=== PATIENT | male | born 1995 | race African-American/Black ===

== ENCOUNTER 2018-03-23 18:16 | Emergency (ER) | payer OTHER, SELFPAY ==
--- NOTE | 2018-03-23 19:31 | RAD REPORT ---
EXAM DESCRIPTION: RAD - Lumbar Spine 3 Views - 03/23/2018 7:09 pm CLINICAL HISTORY: Fall, back pain COMPARISON: None. FINDINGS: A three-view lumbar spine examination was performed. Lumbar bodies are normal in height an d alignment. No fracture or acute bony process seen. Patient has relatively pronounced concavity marisol g the inferior endplates from L2 through L5 with the concavity becoming progressively more pronounced from superior to inferior. Minimal concavity of the superior endplates L3-L5. This is believed to be normal variant for this patient and not an acute process. No transverse process fractures seen. No p ars defect identified. Disc spaces are maintained. IMPRESSION: Negative Lumbar Spine examination for acute finding. Full findings detailed in the body of the report.
--- NOTE | 2018-03-23 19:44 | ER ---
Nurse's Notes [facility] Name: Isaiah Dowling Age: 22 yrs Sex: Male : 1995 Arrival Date: 03/23/2018 Time: 18:20 Bed 12 Private MD: Diagnosis: Contusion of lower back and pelvis Presentation: 03/23 18:33 Presenting complaint: Patient states: " I fell on Thursday when I was playing basketball ph and now my lower back is hurting." Reports L lower back pain that radiates to R shoulder, denies LOC or other injury. Transition of care: patient was not received from another setting of care. Onset of symptoms was March 23, 2018. Risk Assessment: Do you want to hurt yourself or someone else? Patient reports no desire to harm self or others. Initial Sepsis Screen: Does the patient meet any 2 criteria? No. Patient's initial sepsis screen is negative. Does the patient have a suspected source of infection? No. Patient's initial sepsis screen is negative. Care prior to arrival: None. 18:33 Method Of Arrival: Ambulatory ph 18:33 Acuity: CAROL 4 ph Historical: - Allergies: 18:35 No Known Allergies; ph - Home Meds: 18:35 None [Active]; ph - PMHx: 18:35 None; ph - PSHx: 18:35 None; ph - Immunization history:: Adult Immunizations up to date. - Social history:: Smoking status: Patient/guardian denies using tobacco. - Ebola Screening: : Patient negative for fever greater than or equal to 101.5 degrees Fahrenheit, and additional compatible Ebola Virus Disease symptoms Patient denies exposure to infectious person Patient denies travel to an Ebola-affected area in the 21 days before illness onset. Screenin:37 Abuse screen: Denies threats or abuse. Denies injuries from another. Nutritional rv screening: No deficits noted. Tuberculosis screening: No symptoms or risk factors identified. Fall Risk None identified. Assessment: 18:36 General: Appears in no apparent distress. comfortable, Behavior is calm, cooperative. rv Pain: Complains of pain in back. Neuro: Level of Consciousness is awake, alert, obeys commands, Oriented to person, place, time, situation. Cardiovascular: Capillary refill < 3 seconds. Respiratory: Airway is patent. GI: No signs and/or symptoms were reported involving the gastrointestinal system. : No signs and/or symptoms were reported regarding the genitourinary system. EENT: No signs and/or symptoms were reported regarding the EENT system. Derm: Skin is intact. Musculoskeletal: Reports pain in back. 20:00 Reassessment: Patient appears in no apparent distress at this time. mg2 Vital Signs: 18:34 BP 152 / 96; Pulse 62; Resp 16; Temp 98.5(TE); Pulse Ox 100% on R/A; Weight 68.04 kg; ph Height 5 ft. 11 in. (180.34 cm); Pain 10/10; 20:00 BP 140 / 72; Pulse 70; Resp 18; Pulse Ox 100% on R/A; Pain 0/10; mg2 18:34 Body Mass Index 20.92 (68.04 kg, 180.34 cm) ph ED Course: 18:20 Patient arrived in ED. mr 18:33 Mic Montesinos MD is Attending Physician. gs 18:34 Triage completed. ph 18:35 Arm band placed on Patient placed in an exam room. ph 18:37 Patient has correct armband on for positive identification. Bed in low position. Call rv light in reach. Pulse ox on. NIBP on. 18:37 No provider procedures requiring assistance completed. rv 18:59 Lumbar Spine (3 Views) XRAY In Process Unspecified. EDND 19:58 Vincenzo Shanks, RN is Primary Nurse. mg2 19:59 Patient did not have IV access during this emergency room visit. mg2 Administered Medications: No medications were administered Outcome: 19:43 Discharge ordered by . 20:00 Discharged to home ambulatory. mg2 20:00 Condition: good 20:00 Discharge instructions given to patient, Instructed on discharge instructions, follow up and referral plans. medication usage, Demonstrated understanding of instructions, follow-up care, medications, Prescriptions given X 1. 20:00 Patient left the ED. mg2 Signatures: Dispatcher [employer] KRISTINND Crystal Saunders mr Sophia Watkins RN RN Mic Montesinos MD MD Vincenzo Shanks RN RN [facility] [place] Ron Waters RN RN rv
--- NOTE | 2018-03-23 19:44 | EDPHYS ---
Physician Documentation [facility] Name: Isaiah Dowling Age: 22 yrs Sex: Male : 1995 Arrival Date: 03/23/2018 Time: 18:20 Bed 12 Private MD: ED Physician Mic Montesinos HPI: 03/23 19:41 This 22 yrs old Black Male presents to ER via Ambulatory with complaints of Back Pain. gs 19:41 The patient presents with pain that is acute. The symptoms are located in the low back. gs Onset: The symptoms/episode began/occurred 3 day(s) ago. The pain does not radiate. Associated signs and symptoms: Pertinent negatives: incontinence, urinary retention. The problem was sustained during a fall, playing basketball. Modifying factors: the patient symptoms are aggravated by any movement, bending. Severity of symptoms: At their worst the symptoms were moderate, in the emergency department the symptoms are unchanged. The patient has not experienced similar symptoms in the past. Historical: - Allergies: 18:35 No Known Allergies; ph - Home Meds: 18:35 None [Active]; ph - PMHx: 18:35 None; ph - PSHx: 18:35 None; ph - Immunization history:: Adult Immunizations up to date. - Social history:: Smoking status: Patient/guardian denies using tobacco. - Ebola Screening: : Patient negative for fever greater than or equal to 101.5 degrees Fahrenheit, and additional compatible Ebola Virus Disease symptoms Patient denies exposure to infectious person Patient denies travel to an Ebola-affected area in the 21 days before illness onset. ROS: 19:41 All other systems are negative. gs Exam: 19:41 Head/Face: Normocephalic, atraumatic. Eyes: Pupils equal round and reactive to light, gs extra-ocular motions intact. Lids and lashes normal. Conjunctiva and sclera are non-icteric and not injected. Cornea within normal limits. Periorbital areas with no swelling, redness, or edema. ENT: Nares patent. No nasal discharge, no septal abnormalities noted. Tympanic membranes are normal and external auditory canals are clear. Oropharynx with no redness, swelling, or masses, exudates, or evidence of obstruction, uvula midline. Mucous membranes moist. Neck: Trachea midline, no thyromegaly or masses palpated, and no cervical lymphadenopathy. Supple, full range of motion without nuchal rigidity, or vertebral point tenderness. No Meningismus. Chest/axilla: Normal chest wall appearance and motion. Nontender with no deformity. No lesions are appreciated. Cardiovascular: Regular rate and rhythm with a normal S1 and S2. No gallops, murmurs, or rubs. Normal PMI, no JVD. No pulse deficits. Respiratory: Lungs have equal breath sounds bilaterally, clear to auscultation and percussion. No rales, rhonchi or wheezes noted. No increased work of breathing, no retractions or nasal flaring. Abdomen/GI: Soft, non-tender, with normal bowel sounds. No distension or tympany. No guarding or rebound. No evidence of tenderness throughout. Skin: Warm, dry with normal turgor. Normal color with no rashes, no lesions, and no evidence of cellulitis. MS/ Extremity: Pulses equal, no cyanosis. Neurovascular intact. Full, normal range of motion. Neuro: Awake and alert, GCS 15, oriented to person, place, time, and situation. Cranial nerves II-XII grossly intact. Motor strength 5/5 in all extremities. Sensory grossly intact. Cerebellar exam normal. Normal gait. 19:41 Constitutional: The patient appears alert, awake. 19:41 Back: pain, that is mild, of the lumbar area. Vital Signs: 18:34 BP 152 / 96; Pulse 62; Resp 16; Temp 98.5(TE); Pulse Ox 100% on R/A; Weight 68.04 kg; ph Height 5 ft. 11 in. (180.34 cm); Pain 10/10; 20:00 BP 140 / 72; Pulse 70; Resp 18; Pulse Ox 100% on R/A; Pain 0/10; mg2 18:34 Body Mass Index 20.92 (68.04 kg, 180.34 cm) ph MDM: 18:40 Patient medically screened. 19:41 Differential diagnosis: Fracture sprain, vertebral fracture. Data reviewed: vital gs signs, nurses notes. Response to treatment: the patient's symptoms have mildly improved after treatment, and as a result, I will discharge patient. 19:41 Counseling: I had a detailed discussion with the patient and/or guardian regarding: the historical points, exam findings, and any diagnostic results supporting the discharge/admit diagnosis, the presence of at least one elevated blood pressure reading (>120/80) during this emergency department visit, radiology results. Special discussion: I have referred the patient to see his PCP for further evaluation of high blood pressure. 03/23 18:40 Order name: Lumbar Spine (3 Views) XRAY; Complete Time: 19:40 gs Administered Medications: No medications were administered Disposition: 03/23/18 19:43 Discharged to Home. Impression: Contusion of lower back and pelvis. - Condition is Stable. - Discharge Instructions: Contusion, Managing Your Hypertension. - Prescriptions for Naprosyn 500 mg Oral Tablet - take 1 tablet by ORAL route 2 times per day take with food; 20 tablet. - Medication Reconciliation Form, Thank You Letter, Antibiotic Education, Prescription Opioid Use form. - Follow up: Private Physician; When: 2 - 3 days; Reason: Re-evaluation by your physician. Signatures: Dispatcher [employer] EDMS Sophia Watkins RN RN Mic Montesinos MD MD Vincenzo Shanks RN RN [facility] [place] Ron Waters RN RN rv Corrections: (The following items were deleted from the chart) 20:00 19:43 03/23/2018 19:43 Discharged to Home. Impression: Contusion of lower back and mg2 pelvis. Condition is Stable. Forms are Medication Reconciliation Form, Thank You Letter, Antibiotic Education, Prescription Opioid Use. Follow up: Private Physician; When: 2 - 3 days; Reason: Re-evaluation by your physician. gs
== END 2018-03-23 20:00 | disposition home or self-care (01) ==
LOC: ER 18:16
DX: S30.0XXA Contusion of lower back and pelvis, initial encounter (principal); W19.XXXA Unspecified fall, initial encounter; Y93.67 Activity, basketball; Y92.9 Unspecified place or not applicable
CPT/HCPCS: 72100; 99283

== ENCOUNTER 2020-09-26 20:04 | Emergency (ER) | payer OTHER, SELFPAY ==
--- NOTE | 2020-09-26 21:02 | RAD REPORT ---
EXAM DESCRIPTION: CT - Head Brain Wo Cont - 09/26/2020 8:46 pm CLINICAL HISTORY: Head injury status post trauma COMPARISON: None TECHNIQUE: Computed axial tomography of the head was obtained. IV contrast was not requested. All CT scans are performed using dose optimization technique as appropriate and may include automated exposure control or mA/KV adjustment according to patient size. FINDINGS: An intracranial bleed is not seen . The ventricles are normal in caliber. No extra-axial fluid collection is noted. Chronic sinusitis is present. IMPRESSION: No acute intracranial abnormality is seen. If patient's symptoms persist MRI of the bra in would be recommended.
--- NOTE | 2020-09-26 21:59 | ER ---
Nurse's Notes [facility] Name: Isaiah Dowling Age: 25 yrs Sex: Male : 1995 Arrival Date: 09/26/2020 Time: 20:05 Bed 27 Private MD: Diagnosis: Concussion without loss of consciousness Presentation: 09/26 20:14 Chief complaint: Patient states: 2 DAYS [employer], was playing basketball, ran into the wall ca1 and hit my head. Denies LOC. Reports headache since last night. Reports photophobia. Reports dizziness. Denies nausea and vomiting. Coronavirus screen: Client denies travel out of the [place] in the last 14 days. At this time, the client does not indicate any symptoms associated with coronavirus-19. Ebola Screen: Patient negative for fever greater than or equal to 101.5 degrees Fahrenheit, and additional compatible Ebola Virus Disease symptoms Patient denies exposure to infectious person. Patient denies travel to an Ebola-affected area in the 21 days before illness onset. No symptoms or risks identified at this time. Initial Sepsis Screen: Does the patient meet any 2 criteria? No. Patient's initial sepsis screen is negative. Does the patient have a suspected source of infection? No. Patient's initial sepsis screen is negative. Risk Assessment: Do you want to hurt yourself or someone else? Patient reports no desire to harm self or others. 20:14 Method Of Arrival: Ambulatory ca1 20:14 Acuity: CAROL 4 ca1 Historical: - Allergies: 20:18 No Known Allergies; ca1 - Home Meds: 20:18 None [Active]; ca1 - PMHx: 20:18 None; ca1 - PSHx: 20:18 None; ca1 - Immunization history:: Flu vaccine is not up to date. - Social history:: Smoking status: Patient denies any tobacco usage or history of. Patient/guardian denies using alcohol, street drugs. Screenin:43 Abuse screen: Denies threats or abuse. Denies injuries from another. Nutritional ss screening: No deficits noted. Tuberculosis screening: Never had TB. Fall Risk None identified. Assessment: 21:43 General: Appears uncomfortable, Behavior is calm, cooperative, quiet, Denies fever, ss feeling ill, fatigue, chills. Pain: Complains of pain in L side of head, behind L eye, L neck and L shoulder Pain currently is 10 out of 10 on a pain scale. Quality of pain is described as aching, tender, Pain began 1-2 days Is continuous, Aggravated by increased activity, repositioning. Neuro: Level of Consciousness is awake, alert, obeys commands, Oriented to person, place, time, situation, Wildlife Rehabilitator are equal bilaterally Speech is normal, Facial symmetry appears normal. Cardiovascular: Capillary refill < 3 seconds is brisk in bilateral fingers. Respiratory: Airway is patent Respiratory effort is even, unlabored, Respiratory pattern is regular, symmetrical, Denies cough, pain with respiration, pain with cough, pain with movement. GI: Patient currently denies diarrhea, nausea, vomiting. : No signs and/or symptoms were reported regarding the genitourinary system. EENT: Oral mucosa is moist. Throat is clear. Derm: Skin is intact, is healthy with good turgor, Skin is dry, Skin is pink, warm \T\ dry. normal. Musculoskeletal: Circulation, motion, and sensation intact. Range of motion: intact in all extremities, Swelling absent. Vital Signs: 20:14 BP 167 / 106; Pulse 62; Resp 16 S; Temp 97.7(TE); Pulse Ox 100% on R/A; Weight 70.31 kg ca1 (R); Height 5 ft. 11 in. (180.34 cm) (R); Pain 10/10; 20:14 Body Mass Index 21.62 (70.31 kg, 180.34 cm) ca1 [place] Coma Score: 20:14 Eye Response: spontaneous(4). Verbal Response: oriented(5). Motor Response: obeys ca1 commands(6). Total: 15. 21:54 Eye Response: spontaneous(4). Verbal Response: oriented(5). Motor Response: obeys tw4 commands(6). Total: 15. 21:54 Eye Response: spontaneous(4). Verbal Response: oriented(5). Motor Response: obeys tw4 commands(6). Total: 15. ED Course: 20:05 Patient arrived in ED. am4 20:17 Triage completed. ca1 20:18 Arm band placed on right wrist. ca1 20:53 Beau Moore MD is Attending Physician. tw4 21:43 Yaz Thomas RN is Primary Nurse. ss 21:43 Patient has correct armband on for positive identification. Bed in low position. Call light in reach. 22:14 No provider procedures requiring assistance completed. Patient did not have IV access ss during this emergency room visit. Administered Medications: 22:13 Drug: Motrin 800 mg Route: PO; ss 22:13 Follow up: Response: No adverse reaction; Medication administered at discharge. Outcome: 21:58 Discharge ordered by . tw4 22:14 Discharged to home ambulatory. 22:14 Condition: good 22:14 Discharge instructions given to patient, Instructed on discharge instructions, follow up and referral plans. medication usage, Demonstrated understanding of instructions, follow-up care, medications, Prescriptions given X 1. 22:14 Patient left the ED. Signatures: Yaz Thomas, RN RN Beau Ricci MD MD tw4 Lay Tyson RN RN [facility] [place] 4
--- NOTE | 2020-09-26 21:59 | EDPHYS ---
Physician Documentation [facility] Name: Isaiah Dowling Age: 25 yrs Sex: Male : 1995 Arrival Date: 09/26/2020 Time: 20:05 Bed 27 Private MD: ED Physician Beau Moore HPI: 09/26 21:54 This 25 yrs old Black Male presents to ER via Ambulatory with complaints of Head tw4 Injury-Adult. 21:54 The patient or guardian reports injury, pain. The complaints affect the top of head and tw4 forehead. Context of injury: The problem was sustained at home. Associated signs and symptoms: The patient has no apparent associated signs or symptoms. The patient has not experienced similar symptoms in the past. Historical: - Allergies: 20:18 No Known Allergies; ca1 - Home Meds: 20:18 None [Active]; ca1 - PMHx: 20:18 None; ca1 - PSHx: 20:18 None; ca1 - Immunization history:: Flu vaccine is not up to date. - Social history:: Smoking status: Patient denies any tobacco usage or history of. Patient/guardian denies using alcohol, street drugs. ROS: 21:54 Constitutional: Negative for fever, chills, and weight loss, Eyes: Negative for injury, tw4 pain, redness, and discharge, Cardiovascular: Negative for chest pain, palpitations, and edema, Respiratory: Negative for shortness of breath, cough, wheezing, and pleuritic chest pain, Abdomen/GI: Negative for abdominal pain, nausea, vomiting, diarrhea, and constipation, Back: Negative for injury and pain, MS/Extremity: Negative for injury and deformity, Skin: Negative for injury, rash, and discoloration, Neuro: Negative for headache, weakness, numbness, tingling, and seizure. Exam: 21:54 Constitutional: This is a well developed, well nourished patient who is awake, alert, tw4 and in no acute distress. Head/Face: Normocephalic, atraumatic. Chest/axilla: Normal chest wall appearance and motion. Nontender with no deformity. No lesions are appreciated. Cardiovascular: Regular rate and rhythm with a normal S1 and S2. No gallops, murmurs, or rubs. Normal PMI, no JVD. No pulse deficits. 21:54 Neck: External neck: tenderness, of the left trapezius and right trapezius. Vital Signs: 20:14 BP 167 / 106; Pulse 62; Resp 16 S; Temp 97.7(TE); Pulse Ox 100% on R/A; Weight 70.31 kg ca1 (R); Height 5 ft. 11 in. (180.34 cm) (R); Pain 10/10; 20:14 Body Mass Index 21.62 (70.31 kg, 180.34 cm) ca1 [place] Coma Score: 20:14 Eye Response: spontaneous(4). Verbal Response: oriented(5). Motor Response: obeys ca1 commands(6). Total: 15. 21:54 Eye Response: spontaneous(4). Verbal Response: oriented(5). Motor Response: obeys tw4 commands(6). Total: 15. 21:54 Eye Response: spontaneous(4). Verbal Response: oriented(5). Motor Response: obeys tw4 commands(6). Total: 15. MDM: 21:39 Patient medically screened. tw4 21:54 Differential diagnosis: Contusion of head. Data reviewed: vital signs, nurses notes. tw4 Data reviewed: radiologic studies, CT scan. Counseling: I had a detailed discussion with the patient and/or guardian regarding: the historical points, exam findings, and any diagnostic results supporting the discharge/admit diagnosis. Special discussion: Based on the patient's history, exam and DX evaluation, there is no indication for emergent intervention or inpatient TX. It is understood by the patient/guardian that if the SXs persist or worsen they need to return immediately for re-evaluation. I discussed with the patient/guardian in detail that at this point there is no indication for admission to the hospital. It is understood, however, that if the symptoms persist or worsen the patient needs to return immediately for re-evaluation. 09/26 20:30 Order name: CT Head Brain wo Cont kb 09/26 21:03 Order name: CT; Complete Time: 21:52 EDMS Administered Medications: 22:13 Drug: Motrin 800 mg Route: PO; ss 22:13 Follow up: Response: No adverse reaction; Medication administered at discharge. ss Disposition: 09/26/20 21:58 Discharged to Home. Impression: Concussion without loss of consciousness. - Condition is Stable. - Discharge Instructions: Head Injury, Adult, Post-Concussion Syndrome. - Prescriptions for Ibuprofen 800 mg Oral Tablet - take 1 tablet by ORAL route every 12 hours As needed take with food; 20 tablet. - Medication Reconciliation Form, Thank You Letter, Antibiotic Education, Prescription Opioid Use form. - Follow up: Private Physician; When: Upon discharge from the Emergency Department; Reason: Recheck today's complaints, Continuance of care, Re-evaluation by your physician. - Problem is new. - Symptoms have improved. Signatures: Dispatcher [employer] EDMS Yaz Thomas RN RN Beau Moore MD MD tw4 Lay Tyson RN RN ca1 Corrections: (The following items were deleted from the chart) 22:14 21:58 09/26/2020 21:58 Discharged to Home. Impression: Concussion without loss of ss consciousness. Condition is Stable. Forms are Medication Reconciliation Form, Thank You Letter, Antibiotic Education, Prescription Opioid Use. Follow up: Private Physician; When: Upon discharge from the Emergency Department; Reason: Recheck today's complaints, Continuance of care, Re-evaluation by your physician. Problem is new. Symptoms have improved. tw4
[2020-09-26] MEDS ORDERED: IBUPROFEN 400 MG TAB ONE ×2 (22:30→22:31)
[2020-09-27 01:49] VITALS: BP 167/106; TEMP 97.7; O2SAT 100
== END 2020-09-26 22:14 | disposition home or self-care (01) ==
LOC: ER 20:04
DX: S06.0X0A Concussion without loss of consciousness, initial encounter (principal); X58.XXXA Exposure to other specified factors, initial encounter
CPT/HCPCS: 70450; 99283

== ENCOUNTER → 2023-09-04 | Emergency (ER) | payer SELFPAY ==
--- NOTE | 2023-09-04 17:40 | RAD REPORT ---
EXAM DESCRIPTION: RAD - Ankle Right 3 View - 09/04/2023 5:26 pm CLINICAL HISTORY: PAIN COMPARISON: Ankle Right 3 View dated 01/30/2016 FINDINGS/IMPRESSION: No acute fracture. No malalignment. No significant focal degenerative changes.
--- NOTE | 2023-09-04 17:46 | ER ---
Nurse's Notes [facility] Name: Isaiah Dowling Age: 28 yrs Sex: Male : 1995 Arrival Date: 09/04/2023 Time: 16:18 Bed DX5 Private MD: Diagnosis: Sprain of ankle Presentation: 09/04 16:42 Chief complaint: Patient states: rolled right ankle while playing basketball on iw Thursday, has sharp pains when he walks on it or stands too long on it. Coronavirus screen: At this time, the client does not indicate any symptoms associated with coronavirus-19. Ebola Screen: Patient negative for fever greater than or equal to 101.5 degrees Fahrenheit, and additional compatible Ebola Virus Disease symptoms Patient denies exposure to infectious person. Patient denies travel to an Ebola-affected area in the 21 days before illness onset. No symptoms or risks identified at this time. Initial Sepsis Screen: Does the patient meet any 2 criteria? No. Patient's initial sepsis screen is negative. Does the patient have a suspected source of infection? No. Patient's initial sepsis screen is negative. Risk Assessment: Do you want to hurt yourself or someone else? Patient reports no desire to harm self or others. Onset of symptoms was September 02, 2023. 16:42 Method Of Arrival: Ambulatory iw 16:42 Acuity: CAROL 4 iw Historical: - Allergies: 16:45 No Known Allergies; iw - Home Meds: 16:45 None [Active]; iw - PMHx: 16:45 None; iw - Immunization history:: Adult Immunizations not up to date. - Social history:: Smoking status: . Screenin:55 [facility] ED Fall Risk Assessment (Adult) Score/Fall Risk Level 0 - 2 = Low Risk. Abuse as6 screen: Denies threats or abuse. Denies injuries from another. Nutritional screening: No deficits noted. Tuberculosis screening: No symptoms or risk factors identified. Assessment: 17:55 General: Appears in no apparent distress. Behavior is calm, cooperative. Pain: as6 Complains of pain in right ankle. Musculoskeletal: Range of motion: limited in right ankle. Vital Signs: 16:42 BP 140 / 88; Pulse 54; Resp 16; Temp 98.2; Pulse Ox 100% on R/A; Weight 74.84 kg; iw Height 5 ft. 10 in. ; Pain 10/10; 16:42 Body Mass Index 23.67 (74.84 kg, 177.8 cm) iw 16:42 Pain Scale: Adult iw ED Course: 16:23 Patient arrived in ED. im 16:25 Marsha Garza PA-C is PHCP. sb4 16:25 Jonathan Kitchen MD is Attending Physician. sb4 16:43 Triage completed. iw 16:45 Arm band placed on. iw 17:28 Ankle Right 3 View XRAY In Process Unspecified. EDMS 17:45 Vitaly Rizzo MD is Referral Physician. sb4 17:55 Bed in low position. Call light in reach. Provided Education on: follow up with ortho . as6 17:55 No provider procedures requiring assistance completed. Patient did not have IV access as6 during this emergency room visit. Crutch training done. boot. Administered Medications: No medications were administered Medication: 17:55 VIS not applicable for this client. as6 Outcome: 17:46 Discharge ordered by . sb4 17:55 Discharged to home ambulatory, with crutches, as6 17:55 Condition: stable 17:55 Discharge instructions given to patient, Instructed on discharge instructions, follow up and referral plans. crutch walking, Demonstrated understanding of instructions, follow-up care, crutch walking, 17:57 Patient left the ED. as6 Signatures: Dispatcher [employer] Corry Mendoza, GIO POWERS iw Dominic Rowland RN RN as6 Marsha Garza PA-C PA-C sb4 Yaquelin Joseph im Corrections: (The following items were deleted from the chart) 16:45 16:42 Resp 16bpm; Pulse Ox 100% RA; iw iw 16:46 16:42 Resp 16bpm; Pulse Ox 100% RA; Temp 98.2F; 74.84 kg; Height 5 ft. 10 in.; BMI: iw 23.6; Pain 10/10, Adult; iw
--- NOTE | 2023-09-04 17:46 | EDPHYS ---
Physician Documentation [facility] Name: Isaiah Dowling Age: 28 yrs Sex: Male : 1995 Arrival Date: 09/04/2023 Time: 16:18 Bed DX5 Private MD: ED Physician Jonathan Kitchen HPI: 09/04 16:47 This 28 yrs old Black Male presents to ER via Ambulatory with complaints of Ankle sb4 Injury - right. 16:47 The patient presents with an injury, pain, that is acute. The complaints affect the sb4 right ankle. Onset: The symptoms/episode began/occurred 2 day(s) ago. Context: The problem was sustained at a sports field or court, resulted from a mis-step by the patient, The mechanism of injury is unknown. The patient can fully bear weight on the affected extremity. the patient is able to ambulate. Associated signs and symptoms: Pertinent positives: swelling, Pertinent negatives: calf tenderness, numbness, tingling, warmth, weakness. The patient has not experienced similar symptoms in the past. The patient has not recently seen a physician. Historical: - Allergies: 16:45 No Known Allergies; iw - Home Meds: 16:45 None [Active]; iw - PMHx: 16:45 None; iw - Immunization history:: Adult Immunizations not up to date. - Social history:: Smoking status: . ROS: 16:47 Constitutional: Negative for fever, chills, and weight loss, sb4 16:47 MS/extremity: Positive for injury or acute deformity, pain, swelling, tenderness, of the right ankle, 16:47 All other systems are negative, Exam: 16:47 Constitutional: This is a well developed, well nourished patient who is awake, alert, sb4 and in no acute distress. Head/Face: Normocephalic, atraumatic. Eyes: Extra-ocular motions intact. Periorbital areas with no swelling, redness, or edema. ENT: Mucous membranes moist. Skin: Warm, dry with normal turgor. Normal color with no rashes, no lesions, and no evidence of cellulitis. Neuro: Awake and alert, GCS 15, oriented to person, place, time, and situation. Motor strength 5/5 in all extremities. Sensory grossly intact. 16:47 Musculoskeletal/extremity: ROM: limited active range of motion due to pain, limited passive range of motion due to pain, in the right ankle, Circulation is intact in all extremities. Pulses: are normal with no appreciated deficits, Perfusion: the extremity is normally perfused throughout, Sensation intact. Weight bearing: able to fully bear weight, Vital Signs: 16:42 BP 140 / 88; Pulse 54; Resp 16; Temp 98.2; Pulse Ox 100% on R/A; Weight 74.84 kg; iw Height 5 ft. 10 in. ; Pain 10/10; 16:42 Body Mass Index 23.67 (74.84 kg, 177.8 cm) iw 16:42 Pain Scale: Adult iw MDM: 16:47 Patient medically screened. sb4 16:47 Differential diagnosis: fracture, sprain. sb4 17:45 Data reviewed: vital signs, nurses notes, radiologic studies, and as a result, I will sb4 discharge patient. Counseling: I had a detailed discussion with the patient and/or guardian regarding the historical points, exam findings, and any diagnostic results supporting the discharge/admit diagnosis, radiology results, to return to the emergency department if symptoms worsen or persist or if there are any questions or concerns that arise at home. 09/04 16:45 Order name: Ankle Right 3 View XRAY; Complete Time: 17:43 sb4 09/04 17:43 Order name: Aircast Ankle Splint; Complete Time: 17:55 sb4 09/04 17:43 Order name: Crutches; Complete Time: 17:55 sb4 Administered Medications: No medications were administered Disposition: 19:35 Co-signature as Attending Physician, Jonathan Kitchen MD I reviewed the patient's care rn provided by the Advanced Practice Provider and agree with the diagnosis and treatment plan. Disposition Summary: 09/04/23 17:46 Discharge Ordered Notes: Location: Home sb4 Problem: new sb4 Symptoms: are unchanged sb4 Condition: Stable sb4 Diagnosis - Sprain of ankle sb4 Followup: sb4 - With: Vitaly Rizzo MD - When: As needed - Reason: Further diagnostic work-up, Recheck today's complaints, Re-evaluation by your physician Discharge Instructions: - Discharge Summary Sheet sb4 - Ankle Sprain, [id number] sb4 Forms: - Thank You Letter sb4 - Patient Portal Instructions sb4 - Leadership Thank You Letter sb4 Signatures: Dispatcher [facility] Cor[facility] Mendoza, GIO RN Jonathan Chaney MD MD rn Brown, Sophia, HERMELINDA SHEN sb4
[2023-09-04 18:34] VITALS: BP 140/88; TEMP 98.2; O2SAT 100
== END ==
LOC: ER 16:18
DX: S93.401A Sprain of unspecified ligament of right ankle, initial encounter (principal)
CPT/HCPCS: 99283